=== PATIENT | male | born 1965 | race Caucasian/White ===

== ENCOUNTER 2021-05-16 11:07 | Emergency (ER) | payer OTHER ==
[~2021-05-16] VITALS: Ht 175.3 cm; Wt 93.0 kg
[2021-05-16 11:21] VITALS: BP 150/93
== END 2021-05-16 11:26 | disposition home or self-care (01) ==
LOC: M.ERS 11:07
DX: Z20.822 Contact with and (suspected) exposure to COVID-19 (principal)

== ENCOUNTER 2021-05-31 10:16 | Emergency (ER) | payer OTHER ==
[~2021-05-31] VITALS: Ht 175.3 cm; Wt 93.0 kg
[2021-05-31 12:37] VITALS: BP 118/68
== END 2021-05-31 12:38 | disposition home or self-care (01) ==
LOC: M.ERS 10:16
DX: B34.9 Viral infection, unspecified (principal); Z20.822 Contact with and (suspected) exposure to COVID-19